=== PATIENT | male | born 1970 | race African-American/Black ===

== ENCOUNTER 2019-07-10 00:39 | Emergency (ER) | payer BC, SELFPAY ==
--- NOTE | ~2019-07-10 | CT_ITS ---
EXAMINATION: CT brain wo con DATE: 07/10/2019 02:14 INDICATION: Severe headache. Nausea and vomiting. History of migraine headaches. TECHNIQUE: Computed tomography (CT) of the head was performed without intravenous contrast. The mA wa s adjusted according to patient size. Iterative reconstruction technique was employed. Exam dose: 98 3.67 mGy-cm total exam DLP. COMPARISON: None FINDINGS: Examination is limited due to motion artifact. No intracranial mass lesion or hemorrhage, midline shift or mass effect is evident. Normal ventricula r size. No subdural or epidural hematoma is evident. Orbital contents are unremarkable. No fracture or bone destruction of the cranial vault. Included mastoid air cells and paranasal sinuse s are normal. IMPRESSION: Limited examination due to motion; no apparent significant abnormality Reviewed, dictated and finalized at [facility]. Reviewed, dictated and finalized at [facility]. IMPRESSION: Limited examination due to motion; no apparent significant abnorma lity
[2019-07-10 00:45] VITALS: BP 111/89; PULSE 60; RESP 18; TEMP 36.8; O2SAT 100
--- NOTE | 2019-07-10 00:45 | ED.HA ---
HPI - Headache General Chief Complaint: Headache Stated Complaint: STANTON Time Seen by Provider: 07/10/19 00:45 Source: family and RN notes reviewed Mode of arrival: other Limitations: no limitations History of Present Illness HPI Narrative: Pt is a 48 y/o male who presents to the ED with c/o a headache that began 3 days ago (07/07/19). Pt's family was at bedside and provided the information. Pt has a hx of migraines, but his last episode was last year. Pt took Ibuprofen, but with no relief of his sx. Pt also reports weakness with difficulty walking, extremity numbness, vomiting, and lower back pain, but denies a fever, cough, and chest congestion. MD elicited complaint: headache Pertinent past history: migraines Onset (ago): day(s) (3) Onset description: while at rest Relieving factors: nothing Associated symptoms: vomiting, numbness (in his extremities), weakness (with difficulty walking) and other (lower back pain) Related Data Allergies Allergy/AdvReac Type Severity Reaction Status Date / Time No Known Allergies Allergy Verified 07/10/19 02:28 Review of Systems Review of Systems: All systems reviewed & are unremarkable except as noted in HPI and below Constitutional: Constitutional: Denies fever(s) Respiratory: Respiratory: Denies chest congestion and Denies cough Gastrointestinal: Gastrointestinal: Reports vomiting Musculoskeletal: Musculoskeletal: Reports back pain (lower) Neurologic: Reports headache(s), Reports numbness (in his extremities) and Reports weakness (with difficulty walking) PMFSH Past Medical History Medical History (Updated 07/10/19 @ 02:33 by Fabio Nieto MD) Migraines Surgical History Surgical History (Updated 07/10/19 @ 01:01 by Trinidad Thakkar) Surgical history unknown Social History Social History (Updated 07/10/19 @ 01:01 by Trinidad Thakkar) Smoking status: Unknown if ever smoked Exam Narrative: Exam Narrative: Exam limited by patient cooperation Const: General: healthy appearing and alert Nutritional Appearance: well nourished HENMT: Head: normal to inspection Eyes: Pupils: Equal, round and reactive pupils present EOM: EOMs intact bilaterally Resp: Effort & Inspection: normal respiratory effort Auscultation: clear to auscultation bilaterally Cardio: Rate: regular rate Rhythm: regular rhythm GI: GI Palp: Yes Soft to palpation Skin: General skin exam: normal color Rashes: no rashes Wounds: no wounds Neuro: General: moves all extremities Other: Refusing to answer questions or participate in exam Extrem: General: normal to inspection Course Vital Signs Vital signs: Vital Signs Temperature 36.8 C 07/10/19 00:45 Pulse Rate 60 07/10/19 00:45 Respiratory Rate 18 07/10/19 00:45 Blood Pressure 111/89 07/10/19 00:45 Pulse Oximetry 100 07/10/19 00:45 Temperature 36.8 C 07/10/19 00:45 Pulse Rate 84 07/10/19 03:40 Respiratory Rate 18 07/10/19 03:40 Blood Pressure 106/64 07/10/19 03:40 Pulse Oximetry 99 07/10/19 03:40 MDM - Headache MDM Narrative Medical decision making narrative: Throughout his time in the ED he refused to answer questions or participate in his own care in any way. He was able to talk when he chose to do so. He also refused to lye still for CT despite that fact that he when left alone he would remain still on the stretcher. When I went to reassess him I asked how his pain was and he simple closed his eyes and turned away. I told him that if he was not willing to cooperate we would not be able to help him any further. I suspect that he was intentianally obstructing his own medical evaluation in an attempt to procure pain meds. He was reportedly on narcotic pain meds at home and had Track fabian on his arms so he was likely an opioid abuser. Differential Diagnosis Differential diagnosis: Likely migraine, tension headache, subarachnoid hemorrhage, headache and other (malingering) Medical Records Attestatio
[2019-07-10 01:00] LABS: Basophils Percent Auto 0.1 % (0.2-1.2); Hematocrit 43.2 % (42.0-52.0); Hemoglobin 13.9 g/dL (14.0-18.0); Immature Granulocyte Absolute 0.05 K/mm3 (0.00-0.031); Immature Granulocyte Percent A 0.3 % (0-0.5); Lymphocytes Absolute Auto 0.91 K/mm3 (0.9-3.2); Lymphocytes Percent Auto 5.9 % (18.3-44.2); Mean Corpuscular HGB Conc 32.2 g/dl (32-36); Mean Corpuscular Hemoglobin 27.1 pg (26-34); Mean Corpuscular Volume 84.2 fl (80-100); Mean Platelet Volume 8.7 fl (7.4-10.4); Monocytes Absolute Auto 0.5 K/mm3 (0.1-0.6); Monocytes Percent Auto 3.5 % (2.6-8.5); Neutrophils Absolute Auto 13.9 K/mm3 (1.3-6.7); Neutrophils Percent Auto 90.2 % (45.5-73.1); Platelet Count Result 298 k/mm3 (150-375); Red Blood Count 5.13 M/mm3 (4.6-6.20); Red Cell Distribution Width 13.5 % (11.5-14.5); White Blood Count 15.5 K/mm3 (4.5-10.0)
[2019-07-10] MEDS: SODIUM CHLORIDE 0.9% IV 1,000 ML 999 ML IV CONT (01:05)
[2019-07-10] MEDS: METOCLOPRAMIDE HCL INJ 10 MG/2 ML VIAL IV PUSH (01:05)
[2019-07-10] MEDS: KETOROLAC 30 MG/ML VIAL (*BKC) IV PUSH (01:05)
[2019-07-10] MEDS: LORAZEPAM INJ 2 MG/ML VIAL (01:10)
[2019-07-10 01:12] LABS: Blood Urea Nitrogen 18 mg/dL (9-20); Calcium 9.3 mg/dL (8.4-10.2); Carbon Dioxide 27 mmol/L (22-30); Chloride 106 mmol/L (98-107); Estimated CRCL calculation 90 ml/min; Estimated Glomerular Filt Rate > 60; Glucose 165 mg/dL (75-110); Potassium 3.7 mmol/L (3.4-5.0); Sodium 138 mmol/L (137-145)
--- NOTE | 2019-07-10 01:18 | PC.NURSE ---
0108- production administrative assistant called and EDP into room. Patient constantly thrashing in bed, passively hitting and kicking. EDP to order Ativan. CT states they will come back when patient can sit still. Patient's daughter at bedside. Patient difficult to assess and redirect at this time.
--- NOTE | 2019-07-10 01:20 | PC.NURSE ---
Patient's on phone with daughter, reports this behavior happens with his migraines.
--- NOTE | 2019-07-10 01:21 | PC.NURSE ---
Patient's reports that patient has had episodes with his migraines like this in the past. States he has been hospitalized and had neuro consults with no findings. States this is his normal behavior with these episodes.
[2019-07-10 01:30] VITALS: BP 126/80; PULSE 85; RESP 18; O2SAT 98
--- NOTE | 2019-07-10 01:51 | PC.NURSE ---
Patient taken to CT, was unable to lie still. Continuously thrashing and trying to get up. Patient brought back to ED. EDP notified.
--- NOTE | 2019-07-10 02:00 | PC.NURSE ---
Patient's daughter requested to go to CT with patient. Patient's daughter has been the only person able to keep him quiet and still. CT and EDP Gerson approved this.
[2019-07-10 02:52] VITALS: BP 141/90; PULSE 80; RESP 18; O2SAT 99
--- NOTE | 2019-07-10 02:53 | PC.NURSE ---
Patient resting on stretcher, still refuses to answer questions. Grimacing but lying still.
--- NOTE | 2019-07-10 03:20 | PC.NURSE ---
This RN, oracle database analyst and Dr Nieto into patient's room to discuss discharge. Patient still refusing to answer questions or follow commands. Patient only speaking when his daughter addresses him. Dr Nieto speaking with patient and daughter, daughter agreeable to discharge. Patient refused to sit up at this time. Dr Nieto attempted to assist patient up and into chair, patient pushed back trying to lay back down. Daughter became very angry, stating I can get him myself. Please stop. I can do it. His back hurts, do not touch him like that. Dr Nieto attempted to explain situation/discharge and that the patient must cooperate and speak to staff. Patient's daughter continued to scream and not let physician speak. Daughter was screaming at EDP to get out of the room, security was called by staff outside the room. Patient's daughter dressed patient, Dr Nieto left room to deescalate situation. Patient was able to stand with minimal assistance into wheelchair. This RN and oracle database analyst attempting to communicate with patient about his current pain/sx. Patient not responding, patient's daughter states, Don't even worry about it, we're just going to go. Patient was taken to waiting room via wheelchair with daughter to wait for ride.
[2019-07-10 03:40] VITALS: BP 106/64; PULSE 84; RESP 18; O2SAT 99
--- NOTE | 2019-07-10 04:10 | PC.NURSE ---
This RN went to check on patient to ensure his ride arrived. Nurse at vest front presser states he visualized patient get up from wheelchair and ambulate to vehicle when his arrived.
== END 2019-07-10 03:43 | disposition home or self-care (01) ==
PROVIDERS: Emergency Provider Emergency Medicine
DX: R51 Headache (principal)
CPT/HCPCS: 36415; 70450; 80048; 85025; 96361; 96374; 96375; 99284; J0131; J1100; J1200; J1885; J2060; J2765; J7030